=== PATIENT | female | born 1945 | race Caucasian/White ===

== ENCOUNTER 2016-09-21 17:45 | Inpatient (IN) | payer MEDICARE ==
[~2016-09-21] VITALS: Ht 165.1 cm; Wt 103.9 kg
[~2016-09-21 17:45] MED LIST: DIPH25CA61 PO; HYDR-202 PO; HYDR-3144 PO; METF500T4 PO; OMEP10CA2 PO; TEMA30CA PO; TIZA4TAB PO
[2016-09-21] MEDS ORDERED: SODIUM CHLORIDE 0.9% 1,000 ML IV ONE ×2 (18:02→20:22)
[2016-09-21] MEDS ORDERED: SODIUM CHLORIDE 0.9% 1,000ML IVBOLUS ONE (18:30)
[2016-09-21] MEDS ORDERED: SODIUM CHLORIDE FLUSH 10ML SYR IVF ONE (18:30)
[2016-09-21] MEDS ORDERED: LEVOFLOXACIN/PMX 750MG/150ML 150 ML IVPB ONE (19:00)
[2016-09-21 19:04] LABS: HEMOGLOBIN 11.4 g/dL (11.7-16.4)
[2016-09-21 19:15] LABS: ASPARTATE AMINO TRANSFERASE 18 U/L (15-37); BLOOD UREA NITROGEN 65 mg/dL (7-18)
[2016-09-21 20:05] LABS: DIFF TOTAL CELLS COUNTED 100 CELL DIFF
[2016-09-21 20:07] LABS: ANISOCYTOSIS 1+; POIKILOCYTOSIS 1+
[2016-09-21 20:09] LABS: VERIFY COUNTS? YES
[2016-09-21] MEDS ORDERED: SODIUM CHLORIDE FLUSH 10ML SYR IVF PRN (20:30)
[2016-09-21] MEDS: INSULIN REGULAR 100 UNITS/ML, 3ML VIAL SQ-INSULIN SCH (21:00)
[2016-09-21] MEDS ORDERED: ONDANSETRON 2MG/ML, 2ML IVP PRN (21:00)
[2016-09-21] MEDS ORDERED: POLYETHYLENE GLYCOL 17 GM PACKET PO PRN (21:00)
[2016-09-21] MEDS ORDERED: BISACODYL 10 MG SUPP PR PRN (21:00)
[2016-09-21] MEDS ORDERED: TIZA4CAP2 PO (21:23)
[2016-09-21] MEDS ORDERED: HYDR1TAB12 PO (21:23)
[2016-09-21] MEDS ORDERED: MIRA50TA PO (21:24)
[2016-09-21] MEDS ORDERED: ALBUTEROL/IPRATROPIUM 2.5MG/0.5MG, 3 ML NPPB PRN (22:00)
[2016-09-22] VITALS: BP 104/71
[2016-09-22] MEDS: HEPARIN 5,000 UNITS/ML, 1ML SQ SCH ×3 (00:26→17:39)
[2016-09-22] MEDS: CEFTRIAXONE PMX 1GM/50ML 50 ML IV SCH ×2 (00:27→20:57)
[2016-09-22] MEDS: SODIUM CHLORIDE 0.9% 1,000 ML IV SCH ×3 (00:27→17:39)
[2016-09-22] MEDS: ACETAMINOPHEN 325 MG TABLET PO PRN ×3 (00:44→21:03)
[2016-09-22] MEDS: AZITHROMYCIN 500 MG in SODIUM CHLORIDE 0.9% 250 ML IV SCH ×2 (00:44→21:49)
[2016-09-22] MEDS: HYDROcodone/APAP 5/325 TABLET PO PRN ×4 (02:12→23:12)
[2016-09-22 02:15] VITALS: BP 95/65
[2016-09-22 05:50] LABS: BLOOD UREA NITROGEN 69 mg/dL (7-18)
[2016-09-22 05:51] LABS: HEMOGLOBIN 10.5 g/dL (11.7-16.4)
[2016-09-22 05:53] LABS: ASPARTATE AMINO TRANSFERASE 18 U/L (15-37)
[2016-09-22 06:21] LABS: POTASSIUM,URINE RANDOM 12 mmol/L
[2016-09-22 06:51] VITALS: BP 122/82
[2016-09-22] MEDS: INSULIN REGULAR 100 UNITS/ML, 3ML VIAL SQ-INSULIN SCH ×4 (07:00→21:00)
[2016-09-22] MEDS: OMEPRAZOLE 10 MG CAPSULE.DR PO SCH (08:37)
[2016-09-22] MEDS: SENNA/DOCUSATE TABLET PO SCH (08:44)
[2016-09-22 13:50] VITALS: BP 132/78
[2016-09-22 18:47] VITALS: BP 138/89
[2016-09-23 01:19] VITALS: BP 126/80
[2016-09-23] MEDS: SODIUM CHLORIDE 0.9% 1,000 ML IV SCH ×3 (01:48→18:06)
[2016-09-23] MEDS: HEPARIN 5,000 UNITS/ML, 1ML SQ SCH ×3 (05:57→21:30)
[2016-09-23 06:04] LABS: HEMOGLOBIN 10.3 g/dL (11.7-16.4)
[2016-09-23 06:08] LABS: ASPARTATE AMINO TRANSFERASE 19 U/L (15-37); BLOOD UREA NITROGEN 62 mg/dL (7-18); TOTAL IRON BINDING CAPACITY 273 mcg/dL (250-450)
[2016-09-23] MEDS: HYDROcodone/APAP 5/325 TABLET PO PRN ×3 (06:36→21:37)
[2016-09-23 07:00] VITALS: BP 128/82
[2016-09-23] MEDS: INSULIN REGULAR 100 UNITS/ML, 3ML VIAL SQ-INSULIN SCH ×4 (07:00→21:00)
[2016-09-23] MEDS: OMEPRAZOLE 10 MG CAPSULE.DR PO SCH (09:15)
[2016-09-23] MEDS: SENNA/DOCUSATE TABLET PO SCH (09:15)
[2016-09-23] MEDS: IRON SUCROSE COMPLEX 100MG/5ML IV SCH (10:18)
[2016-09-23 13:11] VITALS: BP 159/101
[2016-09-23 19:16] VITALS: BP 154/96
[2016-09-23] MEDS: ACETAMINOPHEN 325 MG TABLET PO PRN (21:37)
[2016-09-23] MEDS: CEFTRIAXONE PMX 1GM/50ML 50 ML IV SCH (22:51)
[2016-09-23] MEDS: AZITHROMYCIN 500 MG in SODIUM CHLORIDE 0.9% 250 ML IV SCH (23:29)
[2016-09-24 01:52] VITALS: BP 147/89
[2016-09-24] MEDS: HYDROcodone/APAP 5/325 TABLET PO PRN ×3 (03:30→15:50)
[2016-09-24 05:50] LABS: HEMOGLOBIN 10.1 g/dL (11.7-16.4)
[2016-09-24] MEDS: SODIUM CHLORIDE 0.9% 1,000 ML IV SCH ×3 (05:51→21:44)
[2016-09-24] MEDS: HEPARIN 5,000 UNITS/ML, 1ML SQ SCH ×3 (05:51→21:10)
[2016-09-24 06:07] LABS: ASPARTATE AMINO TRANSFERASE 27 U/L (15-37); BLOOD UREA NITROGEN 47 mg/dL (7-18)
[2016-09-24 06:36] VITALS: BP 122/79
[2016-09-24] MEDS: INSULIN REGULAR 100 UNITS/ML, 3ML VIAL SQ-INSULIN SCH ×4 (07:00→21:00)
[2016-09-24] MEDS: SENNA/DOCUSATE TABLET PO SCH (08:32)
[2016-09-24] MEDS: IRON SUCROSE COMPLEX 100MG/5ML IV SCH (08:32)
[2016-09-24] MEDS: OMEPRAZOLE 10 MG CAPSULE.DR PO SCH (08:32)
[2016-09-24] MEDS ORDERED: ERGOCALCIFEROL 50,000 UNIT CAPSULE PO SCH (10:00)
[2016-09-24 13:27] VITALS: BP 148/89
[2016-09-24 18:59] VITALS: BP 148/89
[2016-09-24] MEDS: CEFTRIAXONE PMX 1GM/50ML 50 ML IV SCH (21:03)
[2016-09-24] MEDS: AZITHROMYCIN 500 MG in SODIUM CHLORIDE 0.9% 250 ML IV SCH (21:44)
[2016-09-25 01:39] VITALS: BP 153/95
[2016-09-25] MEDS: HYDROcodone/APAP 5/325 TABLET PO PRN ×3 (05:21→19:38)
[2016-09-25] MEDS: SODIUM CHLORIDE 0.9% 1,000 ML IV SCH ×2 (05:22→16:08)
[2016-09-25] MEDS: HEPARIN 5,000 UNITS/ML, 1ML SQ SCH ×2 (05:23→16:08)
[2016-09-25 06:37] VITALS: BP 143/86
[2016-09-25 06:46] LABS: HEMOGLOBIN 9.7 g/dL (11.7-16.4)
[2016-09-25 06:58] LABS: BLOOD UREA NITROGEN 27 mg/dL (7-18)
[2016-09-25] MEDS: INSULIN REGULAR 100 UNITS/ML, 3ML VIAL SQ-INSULIN SCH ×4 (07:00→19:44)
[2016-09-25 07:08] LABS: DIFF TOTAL CELLS COUNTED 100 CELL DIFF
[2016-09-25 07:12] LABS: ANISOCYTOSIS 1+; VERIFY COUNTS? YES
[2016-09-25 07:13] LABS: POIKILOCYTOSIS 1+
[2016-09-25] MEDS: OMEPRAZOLE 10 MG CAPSULE.DR PO SCH (08:39)
[2016-09-25] MEDS: IRON SUCROSE COMPLEX 100MG/5ML IV SCH (08:39)
[2016-09-25] MEDS: SENNA/DOCUSATE TABLET PO SCH (08:39)
[2016-09-25 12:34] VITALS: BP 162/93
[2016-09-25 18:35] VITALS: BP 141/85
[2016-09-25] MEDS: CEFTRIAXONE PMX 1GM/50ML 50 ML IV SCH (20:45)
[2016-09-25] MEDS: ACETAMINOPHEN 325 MG TABLET PO PRN (20:46)
[2016-09-25] MEDS ORDERED: SODIUM CHLORIDE 0.9% 1,000 ML IV SCH (21:00)
[2016-09-25] MEDS: AZITHROMYCIN 500 MG in SODIUM CHLORIDE 0.9% 250 ML IV SCH (21:20)
[2016-09-26] MEDS: HEPARIN 5,000 UNITS/ML, 1ML SQ SCH ×3 (00:30→16:51)
[2016-09-26 02:06] VITALS: BP 158/95
[2016-09-26] MEDS: HYDROcodone/APAP 5/325 TABLET PO PRN ×4 (02:13→22:20)
[2016-09-26 03:20] VITALS: BP 87/53
[2016-09-26 03:26] VITALS: BP 158/95
[2016-09-26 05:22] LABS: HEMOGLOBIN 9.6 g/dL (11.7-16.4)
[2016-09-26 05:26] LABS: BLOOD UREA NITROGEN 18 mg/dL (7-18)
[2016-09-26 06:47] VITALS: BP 152/85
[2016-09-26] MEDS: INSULIN REGULAR 100 UNITS/ML, 3ML VIAL SQ-INSULIN SCH ×4 (08:08→20:44)
[2016-09-26] MEDS: SODIUM CHLORIDE 0.9% 1,000 ML IV SCH (08:08)
[2016-09-26] MEDS: OMEPRAZOLE 10 MG CAPSULE.DR PO SCH (08:09)
[2016-09-26] MEDS: IRON SUCROSE COMPLEX 100MG/5ML IV SCH (08:09)
[2016-09-26] MEDS: SENNA/DOCUSATE TABLET PO SCH (08:09)
[2016-09-26] MEDS ORDERED: ERGO500017 PO (09:13)
[2016-09-26] MEDS: CEFTRIAXONE PMX 1GM/50ML 50 ML IV SCH (10:11)
[2016-09-26] MEDS: AZITHROMYCIN 500 MG in SODIUM CHLORIDE 0.9% 250 ML IV SCH (11:50)
[2016-09-26 12:50] VITALS: BP 144/92
[2016-09-26] MEDS: ACETAMINOPHEN 325 MG TABLET PO PRN (13:25)
[2016-09-26 19:27] VITALS: BP 157/94
[2016-09-27] MEDS: HEPARIN 5,000 UNITS/ML, 1ML SQ SCH ×2 (00:30→08:09)
[2016-09-27 01:30] VITALS: BP 135/83
[2016-09-27] MEDS: HYDROcodone/APAP 5/325 TABLET PO PRN ×2 (04:51→11:21)
[2016-09-27 06:33] VITALS: BP 134/83
[2016-09-27] MEDS: INSULIN REGULAR 100 UNITS/ML, 3ML VIAL SQ-INSULIN SCH ×2 (07:00→11:00)
[2016-09-27] MEDS: OMEPRAZOLE 10 MG CAPSULE.DR PO SCH (08:09)
[2016-09-27] MEDS: SENNA/DOCUSATE TABLET PO SCH (08:09)
[2016-09-27] MEDS: IRON SUCROSE COMPLEX 100MG/5ML IV SCH (08:09)
[2016-09-27] MEDS: CEFTRIAXONE PMX 1GM/50ML 50 ML IV SCH (10:36)
[2016-09-27] MEDS: AZITHROMYCIN 500 MG in SODIUM CHLORIDE 0.9% 250 ML IV SCH (11:13)
== END 2016-09-27 13:25 | disposition home or self-care (01) | DRG 871 ==
LOC: ED 18:20 → EDIP 20:22 → 3NE 22:00 → DCLOUNGE 09-27 12:55
PROVIDERS: ADMIT Internal Medicine
PROC: 02HV33Z Insertion of Infusion Device into Superior Vena Cava, Percutaneous Approach (ICD-10-PCS; principal; 2016-09-25)
PROC: B5181ZA Fluoroscopy of Superior Vena Cava using Low Osmolar Contrast, Guidance (ICD-10-PCS; 2016-09-25)
DX: A41.51 Sepsis due to Escherichia coli [E. coli] (principal); N17.0 Acute kidney failure with tubular necrosis; E43 Unspecified severe protein-calorie malnutrition; J18.9 Pneumonia, unspecified organism; E87.1 Hypo-osmolality and hyponatremia; E87.2 Acidosis; J98.11 Atelectasis; R17 Unspecified jaundice; N04.9 Nephrotic syndrome with unspecified morphologic changes; N10 Acute pyelonephritis; E11.9 Type 2 diabetes mellitus without complications; I10 Essential (primary) hypertension; R65.20 Severe sepsis without septic shock; E61.1 Iron deficiency; B96.89 Other specified bacterial agents as the cause of diseases classified elsewhere; E55.9 Vitamin D deficiency, unspecified; E86.1 Hypovolemia; M54.9 Dorsalgia, unspecified; D64.9 Anemia, unspecified; G89.4 Chronic pain syndrome; K59.00 Constipation, unspecified; Z79.891 Long term (current) use of opiate analgesic; Z90.49 Acquired absence of other specified parts of digestive tract; Z90.89 Acquired absence of other organs; Z68.38 Body mass index [BMI] 38.0-38.9, adult; Z80.9 Family history of malignant neoplasm, unspecified; Z82.49 Family history of ischemic heart disease and other diseases of the circulatory system; Z88.2 Allergy status to sulfonamides; Z88.5 Allergy status to narcotic agent; Z98.1 Arthrodesis status
CPT/HCPCS: 36415; 36569; 71010; 76770; 76937; 77001; 80053; 80069; 81001; 82306; 82330; 82436; 82570; 82728; 82962; 83036; 83540; 83550; 83605; 83735; 83970; 84100; 84133; 84145; 84300; 84550; 85025; 85610; 85730; 87040; 87077; 87086; 87186; 93005; 96360; 96361; J0456; J0696; J1644; J1756; C1751; J7030; J7050

== ENCOUNTER → 2016-10-26 | Outpatient (CLI) | payer MEDICARE ==
[~2016-10-26] MED LIST changes: +ERGO500017 PO; +HYDR1TAB12 PO; +MIRA50TA PO; +TIZA4CAP2 PO
== END | disposition home or self-care (01) ==
LOC: CFH 11:57
PROVIDERS: ATTEND Family Medicine
DX: R22.42 Localized swelling, mass and lump, left lower limb (principal)

== ENCOUNTER → 2016-10-31 | Outpatient (CLI) | payer MEDICARE | END | disposition home or self-care (01) | LOC: CFH 11:12 | PROVIDERS: ATTEND Family Medicine | DX: N64.89 Other specified disorders of breast (principal) | CPT/HCPCS: G0204 ==

== ENCOUNTER → 2016-12-14 | Outpatient (CLI) | payer MEDICARE | END | disposition home or self-care (01) | LOC: RAD 17:27 | PROVIDERS: ATTEND Family Medicine | DX: Z02.9 Encounter for administrative examinations, unspecified (principal) ==

== ENCOUNTER → 2017-06-17 | Outpatient (CLI) | payer MEDICARE ==
[~2017-06-17] MED LIST changes: -HYDR-3144 PO; +HYDR-3245 PO
== END | disposition home or self-care (01) ==
LOC: CFH 15:48
PROVIDERS: ATTEND Neurological Surgery
DX: M53.2X6 Spinal instabilities, lumbar region (principal)
CPT/HCPCS: 72110

== ENCOUNTER → 2018-09-30 | Outpatient (CLI) | payer MEDICARE ==
[~2018-09-30] MED LIST changes: -HYDR1TAB12 PO; +HYDR1TAB13 PO; +METF500T17 PO; -METF500T4 PO
== END | disposition home or self-care (01) ==
LOC: CFH 14:34
PROVIDERS: ATTEND Pain Medicine Interventional Pain Medicine
DX: M43.5X6 Other recurrent vertebral dislocation, lumbar region (principal); M47.816 Spondylosis without myelopathy or radiculopathy, lumbar region; M48.061 Spinal stenosis, lumbar region without neurogenic claudication; M96.1 Postlaminectomy syndrome, not elsewhere classified
CPT/HCPCS: 72120